=== PATIENT | male | born 1995 | race African-American/Black ===

== ENCOUNTER 2021-02-12 16:53 | Emergency (ER) | payer SELFPAY ==
[~2021-02-12] VITALS: Ht 172.7 cm; Wt 72.6 kg
[2021-02-12] MEDS ORDERED: OLANZAPINE 10 MG VIAL IM ONE ×2 (17:15→17:41)
--- NOTE | 2021-02-12 17:31 | NUR ---
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
[2021-02-12 17:32] LABS: HEMATOCRIT 38.8 % (36.7-47.1); MEAN CORPUSCULAR HEMOGLOBIN 32.9 uug (23.8-33.4); MEAN CORPUSCULAR VOLUME 92.4 fL (73.0-96.2); PLATELET COUNT (AUTO) 374 K/uL (152-348)
[2021-02-12 17:36] LABS: ETHANOL < 3 MG/DL (0-0)
[2021-02-12 17:37] LABS: CARBON DIOXIDE 30 mmol/L (21-32); CHLORIDE 101 mmol/L (98-107); CREATININE 0.8 mg/dL (0.6-1.3); GLUCOSE 79 mg/dL (74-106); POTASSIUM 3.7 mmol/L (3.5-5.1); UREA NITROGEN, BLOOD 17 mg/dL (7-18)
[2021-02-12 17:42] LABS: ALANINE AMINOTRANSFERASE 57 U/L (16-63); ALKALINE PHOSPHATASE 112 U/L (50-136); ASPARTATE AMINOTRANSFERASE 31 U/L (15-37); BILIRUBIN,DIRECT 0.2 mg/dL (0.0-0.2); BILIRUBIN,TOTAL 0.4 mg/dL (0.2-1.0); CREATINE KINASE, TOTAL 238 U/L (39-308); TOTAL PROTEIN, SERUM 7.1 g/dL (6.4-8.2)
[2021-02-12 17:43] LABS: ACETAMINOPHEN < 2.0 ug/mL (10-30)
[2021-02-12 17:50] LABS: THYROID STIMULATING HORMONE 0.845 mIU/mL (0.358-3.740)
--- NOTE | 2021-02-12 20:00 | NUR ---
Patient is resting comfortably in bed with eyes closed
[2021-02-12 20:06] LABS: *BILIRUBIN,URIN NEGATIVE (NEGATIVE); *BLOOD, URINE NEGATIVE (NEGATIVE); *CLARITY,URINE CLEAR (CLEAR); *COLOR,URINE YELLOW (YELLOW); *KETONES,URINE NEGATIVE (NEGATIVE); *UROBILINOGEN,URINE 0.2 E.U./dl (NORMAL); LEUKOCYTE ESTERASE ,URINE NEGATIVE (NEGATIVE); NITRITE, URINE NEGATIVE (NEGATIVE); UGLUCOSE NEGATIVE (NEGATIVE)
--- NOTE | 2021-02-12 20:15 | NUR ---
Patient is resting comfortably in bed with eyes closed
[2021-02-12 20:16] LABS: *AMPHETAMINE, URINE POSITIVE (NEGATIVE); *CANNABINOID, URINE NEGATIVE (NEGATIVE); *COCCAINE, URINE NEGATIVE (NEGATIVE); *OPIATE, URINE NEGATIVE (NEGATIVE); *PHENCYCLIDINE SCREEN,URINE NEGATIVE (NEGATIVE)
--- NOTE | 2021-02-12 20:30 | NUR ---
1:1 sitter at bedside Patient is resting comfortably in bed with eyes closed.
--- NOTE | 2021-02-12 21:00 | NUR ---
Patient is resting comfortably in bed with eyes closed
--- NOTE | 2021-02-12 21:15 | NUR ---
Patient is resting comfortably in bed with eyes closed
--- NOTE | 2021-02-12 21:30 | NUR ---
Patient is resting comfortably in bed with eyes closed.
--- NOTE | 2021-02-12 21:45 | NUR ---
1:1 sitter at bedside Patient is resting comfortably in bed with eyes closed.
--- NOTE | 2021-02-12 22:00 | NUR ---
Patient is resting comfortably in bed with eyes closed.
--- NOTE | 2021-02-12 22:15 | NUR ---
1:1 sitter at bedside Patient is resting comfortably in bed with eyes closed.
--- NOTE | 2021-02-12 22:30 | NUR ---
Patient is resting comfortably in bed with eyes closed.
--- NOTE | 2021-02-12 22:45 | NUR ---
1:1 sitter at bedside Patient is resting comfortably in bed with eyes closed.
--- NOTE | 2021-02-13 01:24 | NUR ---
Galina from PET TE[employer] here to eval patient.
--- NOTE | 2021-02-13 01:50 | NUR ---
Galina from PET TE[employer] broke patient's hold. Patient in room with no distress noted, laying on gurny.
--- NOTE | 2021-02-13 06:59 | NUR ---
Patient discharged to home in stable condition. Written and verbal after care instructions given. Patient verbalizes understanding of instructions. Stressed follow up or return to ER for worsening s/s.
[2021-02-13 07:00] VITALS: BP 118/72
== END 2021-02-13 07:00 | disposition home or self-care (01) ==
LOC: ER 16:56
DX: F15.959 Other stimulant use, unspecified with stimulant-induced psychotic disorder, unspecified (principal); F20.9 Schizophrenia, unspecified; Z20.822 Contact with and (suspected) exposure to COVID-19
CPT/HCPCS: 36415; 84443; 85025; A4663; G0480; J2358